=== PATIENT | female | born 2000 | race African-American/Black ===

== ENCOUNTER 2022-01-02 18:54 | Emergency (ER) | payer SELFPAY | END 2022-01-02 20:29 | disposition home or self-care (01) | LOC: CSHERS 18:54 | DX: R07.89 Other chest pain (principal) | CPT/HCPCS: 71045; 93005 ==

== ENCOUNTER 2022-02-18 14:36 | Emergency (ER) | payer SELFPAY ==
[2022-02-18] MEDS ORDERED: Ketorolac Tromethamine 30 MG/ML VIAL ONE (16:22)
== END 2022-02-18 17:45 | disposition home or self-care (01) ==
LOC: CSHERS 14:36
DX: K04.7 Periapical abscess without sinus (principal)
CPT/HCPCS: 96372; 99283; J1885